=== PATIENT | male | born 1945 | race Caucasian/White ===

== ENCOUNTER 2020-06-16 15:25 | Inpatient (IN) ==
[2020-06-16] MEDS ORDERED: Amiodarone Premix 360 MG/200 ML BAG IVC ONE ×2 (15:43→15:52)
[2020-06-16] MEDS ORDERED: Amiodarone Premix 150 MG/100 ML BAG IVPB ONE ×2 (15:43→15:50)
[2020-06-16 16:11] LABS: Mean Corpuscular Hemoglobin 28.6 pg (28.0-33.3)
[2020-06-16 16:12] LABS: Basophils % 0.6 %; Eosinophils # 0.1 K/mcL (0.0-0.6); Eosinophils % 2.7 %; Hematocrit 44.5 % (37.5-50.1); Immature Granulocytes % 1.7 % (0-4); Mean Corpuscular HGB Conc 31.5 g/dL (31.6-35.5); Mean Corpuscular Volume 90.8 fL (83.0-100.0); Mean Platelet Volume 11.8 fL (9.4-12.4); Monocytes # 0.8 K/mcL (0.0-1.3); Monocytes % 15.7 %; Neutrophils # 1.9 K/mcL (1.6-8.9); Red Cell Distribution Width 15.4 % (11.5-14.5); Segmented Neutrophils % 36.3 %; White Blood Count 5.2 K/mcL (4.3-11.1)
[2020-06-16 16:20] LABS: Prothrombin Time 11.9 Seconds (9.4-12.1)
[2020-06-16 16:22] LABS: Activated Partial Thrombo Time 28.9 Seconds (26.0-36.0)
[2020-06-16 16:31] LABS: Alanine Aminotransferase 31 Units/L (7-52); Albumin 4.7 g/dL (3.5-5.7); Albumin/Globulin Ratio 1.5 (1.1-2.2); Alkaline Phosphatase 54 Units/L (34-104); Aspartate Amino Transferase 27 Units/L (13-39); BUN/Creatinine Ratio 12 (6-26); Bilirubin,Direct 0.2 mg/dL (0.0-0.2); Bilirubin,Indirect 0.5 mg/dL (0.0-1.0); Bilirubin,Total 0.7 mg/dL (0.3-1.0); Blood Urea Nitrogen 13 mg/dL (8-23); Calcium 9.6 mg/dL (8.6-10.3); Carbon Dioxide 28 mEq/L (23-29); Chloride 103 mEq/L (98-107); Globulin 3.2 g/dL (2.4-3.5); Glucose 135 mg/dL (70-105); Osmolality,Calculated 288 (280-300); Potassium 3.2 mEq/L (3.5-5.1); Sodium 138 mEq/L (136-145); Total Protein 7.9 g/dL (6.4-8.9); Troponin I 0.03 ng/mL (< 0.04); eGFR For African Americans > 60 (> 60); eGFR For Non-African Americans > 60 (> 60)
[2020-06-16 17:14] LABS: Lymphocytes # 2.2 K/mcL (0.6-4.6); Platelet Count 82 K/mcL (140-400)
[2020-06-16 17:15] LABS: Platelet Estimate Decreased (Normal)
[2020-06-16 18:24] LABS: Magnesium 1.9 mg/dL (1.6-2.6)
[2020-06-16 18:28] LABS: Troponin I 0.06 ng/mL (< 0.04)
[2020-06-16] MEDS ORDERED: *HR* Heparin 5,000 UNIT/ML VIAL IVP PRN ×2 (18:34)
[2020-06-16] MEDS ORDERED: *HR* Heparin 5,000 UNIT/ML VIAL IVP ONE (18:34)
[2020-06-16] MEDS ORDERED: Heparin 25,000UNIT/250ML 1/2NS 25,000 UNIT/250 ML IV.SOLN IVC SCH (18:45)
[2020-06-16 19:18] LABS: Hemoglobin 12.8 g/dL (12.9-16.9); Mean Corpuscular Hemoglobin 28.6 pg (28.0-33.3)
[2020-06-16 19:20] LABS: Hematocrit 40.4 % (37.5-50.1); Immature Platelets 12.1 % (1.1-6.1); Mean Corpuscular HGB Conc 31.7 g/dL (31.6-35.5); Mean Corpuscular Volume 90.4 fL (83.0-100.0); Mean Platelet Volume 12.1 fL (9.4-12.4); Red Blood Count 4.47 M/mcL (4.19-5.50); Red Cell Distribution Width 15.2 % (11.5-14.5); White Blood Count 5.8 K/mcL (4.3-11.1)
[2020-06-16 19:26] LABS: Heparin anti-factor XA UFH < 0.04 IU/mL (0.30-0.70)
[2020-06-16 19:27] LABS: Prothrombin Time 11.6 Seconds (9.4-12.1)
[2020-06-16] MEDS ORDERED: Naloxone 0.4 MG/ML INJ IVP PRN (20:47)
[2020-06-16] MEDS ORDERED: Ondansetron ODT 4 MG TAB.RAPDIS SL PRN (20:47)
[2020-06-16] MEDS ORDERED: Acetaminophen 325 MG TABLET PO PRN (20:47)
[2020-06-16] MEDS ORDERED: Perflutren Lipid Microsphere 1.3 ML in 0.9 % Sodium Chloride 8.7 ML IVP PRN (20:50)
[2020-06-16] MEDS: Amiodarone Premix 360 MG/200 ML BAG IVC SCH (21:16)
[2020-06-16] MEDS: Melatonin 3 MG TABLET PO SCH (22:23)
[2020-06-17 04:16] LABS: Basophils % 0.4 %; Hemoglobin 13.4 g/dL (12.9-16.9); Red Cell Distribution Width 15.2 % (11.5-14.5)
[2020-06-17 04:18] LABS: Eosinophils # 0.1 K/mcL (0.0-0.6); Eosinophils % 2.3 %; Hematocrit 42.5 % (37.5-50.1); Immature Granulocytes % 1.2 % (0-4); Immature Platelets 13.5 % (1.1-6.1); Lymphocytes # 1.6 K/mcL (0.6-4.6); Lymphocytes % 31.1 %; Mean Corpuscular HGB Conc 31.5 g/dL (31.6-35.5); Mean Corpuscular Hemoglobin 28.5 pg (28.0-33.3); Mean Corpuscular Volume 90.4 fL (83.0-100.0); Mean Platelet Volume 12.5 fL (9.4-12.4); Monocytes # 0.9 K/mcL (0.0-1.3); Monocytes % 16.6 %; Neutrophils # 2.5 K/mcL (1.6-8.9); Segmented Neutrophils % 48.4 %; White Blood Count 5.2 K/mcL (4.3-11.1)
[2020-06-17 04:20] LABS: Platelet Count 68 K/mcL (140-400)
[2020-06-17 04:25] LABS: Prothrombin Time 11.7 Seconds (9.4-12.1)
[2020-06-17 04:54] LABS: Alanine Aminotransferase 25 Units/L (7-52); Albumin/Globulin Ratio 1.4 (1.1-2.2); Alkaline Phosphatase 52 Units/L (34-104); Aspartate Amino Transferase 24 Units/L (13-39); BUN/Creatinine Ratio 13 (6-26); Bilirubin,Total 0.6 mg/dL (0.3-1.0); Blood Urea Nitrogen 12 mg/dL (8-23); Calcium 9.1 mg/dL (8.6-10.3); Carbon Dioxide 24 mEq/L (23-29); Chloride 107 mEq/L (98-107); Cholesterol 128 mg/dL (< 200); Globulin 2.8 g/dL (2.4-3.5); Glucose 102 mg/dL (70-105); HDL Cholesterol 32 mg/dL (40-59); LDL Cholesterol,Calculated 73 mg/dL (< 100); Osmolality,Calculated 286 (280-300); Phosphorous 3.7 mg/dL (2.7-4.5); Potassium 4.1 mEq/L (3.5-5.1); Sodium 138 mEq/L (136-145); Thyroid Stimulating Hormone 2.347 mcIU/mL (0.340-5.600); Total Protein 6.8 g/dL (6.4-8.9); Triglycerides 114 mg/dL (< 150); eGFR For African Americans > 60 (> 60); eGFR For Non-African Americans > 60 (> 60)
[2020-06-17] MEDS: Metoprolol XL (24 HR) Succ 25 MG TAB.ER.24H PO SCH (08:54)
[2020-06-17] MEDS: Aspirin Enteric Coated 81 MG Tablet PO SCH (12:53)
[2020-06-17] MEDS: Amiodarone Premix 360 MG/200 ML BAG IVC SCH (13:47)
[2020-06-17] MEDS ORDERED: Fluticasone Propionate Nasal 50 MCG/SPRAY BOTTLE NS PRN (14:18)
[2020-06-17] MEDS ORDERED: *HR* OxyCODONE ER (12 HR) 10 MG TABLET PO PRN (14:18)
[2020-06-17] MEDS ORDERED: *HR* LORazepam 2 MG/ML VIAL IVP PRN ×3 (18:15)
[2020-06-17] MEDS: Melatonin 3 MG TABLET PO SCH (20:32)
[2020-06-17] MEDS: Folic Acid 1 MG TABLET PO SCH (20:33)
[2020-06-17] MEDS: Thiamine (B-1) 100 MG TABLET PO SCH (20:33)
[2020-06-18] MEDS: Amiodarone Premix 360 MG/200 ML BAG IVC SCH ×2 (02:09→12:19)
[2020-06-18 07:24] LABS: Basophils % 0.4 %; Eosinophils # 0.1 K/mcL (0.0-0.6); Eosinophils % 2.1 %; Hematocrit 41.7 % (37.5-50.1); Lymphocytes # 1.3 K/mcL (0.6-4.6); Lymphocytes % 25.4 %; Mean Corpuscular HGB Conc 31.2 g/dL (31.6-35.5); Mean Corpuscular Hemoglobin 28.3 pg (28.0-33.3); Mean Corpuscular Volume 90.7 fL (83.0-100.0); Mean Platelet Volume 12.2 fL (9.4-12.4); Monocytes # 1.1 K/mcL (0.0-1.3); Monocytes % 21.7 %; Red Cell Distribution Width 15.3 % (11.5-14.5); Segmented Neutrophils % 49.4 %; White Blood Count 5.2 K/mcL (4.3-11.1)
[2020-06-18 07:29] LABS: Neutrophils # 2.6 K/mcL (1.6-8.9); Platelet Count 76 K/mcL (140-400)
[2020-06-18 07:43] LABS: BUN/Creatinine Ratio 15 (6-26); Blood Urea Nitrogen 14 mg/dL (8-23); Calcium 9.3 mg/dL (8.6-10.3); Carbon Dioxide 27 mEq/L (23-29); Chloride 106 mEq/L (98-107); Glucose 99 mg/dL (70-105); Osmolality,Calculated 287 (280-300); Potassium 3.8 mEq/L (3.5-5.1); Sodium 138 mEq/L (136-145); eGFR For African Americans > 60 (> 60); eGFR For Non-African Americans > 60 (> 60)
[2020-06-18] MEDS: Folic Acid 1 MG TABLET PO SCH (08:01)
[2020-06-18] MEDS: Vitamin B Complex/Vit C/Vit E 1 EACH TABLET PO SCH (08:02)
[2020-06-18] MEDS: Thiamine (B-1) 100 MG TABLET PO SCH (08:02)
[2020-06-18] MEDS: Metoprolol XL (24 HR) Succ 25 MG TAB.ER.24H PO SCH (08:02)
[2020-06-18] MEDS: Aspirin Enteric Coated 81 MG Tablet PO SCH (08:02)
[2020-06-18] MEDS ORDERED: NON-FORMULARY MEDICATION 1 EACH EACH (Atorvastatin Calcium [Lipitor] 80 MG Tablet) PO SCH (09:00)
[2020-06-18] MEDS ORDERED: Aspirin Enteric Coated 81 MG Tablet PO SCH (09:00)
[2020-06-18 09:19] LABS: Large Platelets Present (Not Present); Smudge Cells Present (Not Present)
[2020-06-18] MEDS ORDERED: Potassium Chloride 20 MEQ, Lidocaine 1% 2 ML in 0.9 % Sodium Chloride 250 ML IVPB ONE (10:41)
[2020-06-18 13:20] LABS: Lactate Dehydrogenase 185 Units/L (140-271)
[2020-06-18 13:27] LABS: Immature Reticulocyte % 24.3 % (11.0-38.0); Retculocyte # 0.12 M/mcL (0.05-0.10); Reticulocyte % 2.2 % (1.6-2.8)
[2020-06-18] MEDS ORDERED: Metoprolol XL (24 HR) Succ 25 MG TAB.ER.24H PO ONE (13:30)
[2020-06-18 14:07] LABS: Hepatitis B Surface Antigen Nonreactive (Nonreactive)
[2020-06-18 14:36] LABS: Hepatitis C Virus Antibody Nonreactive (Nonreactive)
[2020-06-18 14:37] LABS: Hepatitis B Core IgM Nonreactive (Nonreactive)
[2020-06-18 14:38] LABS: Hepatitis A Antibody IgM Nonreactive (Nonreactive)
[2020-06-18] MEDS: Melatonin 3 MG TABLET PO SCH (20:06)
[2020-06-19] MEDS: Amiodarone Premix 360 MG/200 ML BAG IVC SCH (00:06)
[2020-06-19] MEDS: Vitamin B Complex/Vit C/Vit E 1 EACH TABLET PO SCH (07:48)
[2020-06-19] MEDS: Thiamine (B-1) 100 MG TABLET PO SCH (07:48)
[2020-06-19] MEDS: Folic Acid 1 MG TABLET PO SCH (07:49)
[2020-06-19] MEDS: Aspirin Enteric Coated 81 MG Tablet PO SCH (07:49)
[2020-06-19] MEDS ORDERED: Metoprolol XL (24 HR) Succ 25 MG TAB.ER.24H PO SCH (09:00)
[2020-06-19 09:25] LABS: Eosinophils # 0.1 K/mcL (0.0-0.6); Hematocrit 43.1 % (37.5-50.1); Hemoglobin 13.7 g/dL (12.9-16.9); Immature Platelets 13.8 % (1.1-6.1); Mean Corpuscular HGB Conc 31.8 g/dL (31.6-35.5); Mean Corpuscular Hemoglobin 28.5 pg (28.0-33.3); Mean Corpuscular Volume 89.8 fL (83.0-100.0); Mean Platelet Volume 11.5 fL (9.4-12.4); Neutrophils # 2.8 K/mcL (1.6-8.9); Platelet Count 83 K/mcL (140-400); Red Cell Distribution Width 15.5 % (11.5-14.5); White Blood Count 5.8 K/mcL (4.3-11.1)
[2020-06-19 09:44] LABS: BUN/Creatinine Ratio 17 (6-26); Blood Urea Nitrogen 14 mg/dL (8-23); Calcium 9.7 mg/dL (8.6-10.3); Carbon Dioxide 26 mEq/L (23-29); Chloride 105 mEq/L (98-107); Glucose 97 mg/dL (70-105); Osmolality,Calculated 286 (280-300); Potassium 4.2 mEq/L (3.5-5.1); Sodium 138 mEq/L (136-145); eGFR For African Americans > 60 (> 60); eGFR For Non-African Americans > 60 (> 60)
[2020-06-19] MEDS ORDERED: *HR* Midazolam HCl 2 MG/2 ML VIAL ONE (11:36)
[2020-06-19] MEDS ORDERED: *HR* FentaNYL (PF) 100 MCG/2 ML VIAL ONE (11:36)
[2020-06-19] MEDS ORDERED: ISOVUE-370 200 ML INFUS..BTL ONE (12:43)
[2020-06-19] MEDS ORDERED: Amiodarone Premix 360 MG/200 ML BAG IVC ONE (12:46)
[2020-06-19] MEDS ORDERED: Heparin 1,000 UNITS/500 mL 500 ML ONE ×2 (12:46→13:52)
[2020-06-19] MEDS ORDERED: *HR* Ticagrelor 90 MG TABLET ONE (12:52)
[2020-06-19 12:55] LABS: Basophils # 0.2 K/mcL (0.0-0.2); Lymphocytes # 1.7 K/mcL (0.6-4.6); Monocytes # 0.9 K/mcL (0.0-1.3); Platelet Estimate Decreased (Normal)
[2020-06-19 12:58] LABS: Reactive Lymphocytes Present (Not Present)
[2020-06-19] MEDS ORDERED: *HR* Heparin 10,000 UNIT/10 ML VIAL ONE (13:07)
[2020-06-19] MEDS ORDERED: Nitroglycerin Spray 4.9 GM BOTTLE ONE (13:49)
[2020-06-19] MEDS ORDERED: Furosemide 40 MG/4 ML VIAL IVP ONE (15:13)
[2020-06-19] MEDS: Melatonin 3 MG TABLET PO SCH (21:46)
[2020-06-19] MEDS: *HR* Ticagrelor 90 MG TABLET PO SCH (21:46)
[2020-06-20 01:45] LABS: Basophils % 0.4 %
[2020-06-20 01:46] LABS: Eosinophils # 0.1 K/mcL (0.0-0.6); Hemoglobin 13.9 g/dL (12.9-16.9); Immature Platelets 14.7 % (1.1-6.1); Lymphocytes # 1.3 K/mcL (0.6-4.6); Lymphocytes % 15.8 %; Mean Corpuscular HGB Conc 33.1 g/dL (31.6-35.5); Mean Corpuscular Hemoglobin 28.8 pg (28.0-33.3); Mean Corpuscular Volume 87.1 fL (83.0-100.0); Mean Platelet Volume 12.3 fL (9.4-12.4); Monocytes # 1.7 K/mcL (0.0-1.3); Monocytes % 21.7 %; Neutrophils # 4.6 K/mcL (1.6-8.9); Red Blood Count 4.82 M/mcL (4.19-5.50); Segmented Neutrophils % 58.1 %; White Blood Count 7.9 K/mcL (4.3-11.1)
[2020-06-20 01:50] LABS: Platelet Count 91 K/mcL (140-400)
[2020-06-20 02:05] LABS: BUN/Creatinine Ratio 19 (6-26); Blood Urea Nitrogen 16 mg/dL (8-23); Calcium 9.7 mg/dL (8.6-10.3); Carbon Dioxide 23 mEq/L (23-29); Chloride 102 mEq/L (98-107); Glucose 105 mg/dL (70-105); Osmolality,Calculated 284 (280-300); Potassium 3.6 mEq/L (3.5-5.1); Sodium 136 mEq/L (136-145); eGFR For African Americans > 60 (> 60); eGFR For Non-African Americans > 60 (> 60)
[2020-06-20] MEDS: Aspirin Enteric Coated 81 MG Tablet PO SCH (08:02)
[2020-06-20] MEDS: *HR* Ticagrelor 90 MG TABLET PO SCH ×2 (08:03→21:12)
[2020-06-20] MEDS: Thiamine (B-1) 100 MG TABLET PO SCH (08:03)
[2020-06-20] MEDS: Folic Acid 1 MG TABLET PO SCH (08:03)
[2020-06-20] MEDS: Vitamin B Complex/Vit C/Vit E 1 EACH TABLET PO SCH (08:03)
[2020-06-20] MEDS ORDERED: Benzonatate 100 MG CAPSULE PO PRN (08:05)
[2020-06-20] MEDS ORDERED: Furosemide 40 MG/4 ML VIAL IVP ONE (09:00)
[2020-06-20] MEDS: Spironolactone 25 MG TABLET PO SCH (10:43)
[2020-06-20] MEDS: Sacubitril/Valsartan 24/26 MG 1 TABLET PO SCH ×2 (10:43→21:12)
[2020-06-20] MEDS: Metoprolol XL (24 HR) Succ 50 MG TAB.ER.24H PO SCH ×2 (17:07→21:16)
[2020-06-20] MEDS ORDERED: Melatonin 3 MG TABLET PO PRN (17:49)
[2020-06-20] MEDS ORDERED: Nitroglycerin 0.4 MG TAB.SUBL SL PRN (17:50)
[2020-06-20] MEDS: Melatonin 3 MG TABLET PO SCH (21:14)
[2020-06-21 05:54] LABS: Hematocrit 45.1 % (37.5-50.1); Hemoglobin 14.5 g/dL (12.9-16.9); Mean Corpuscular HGB Conc 32.2 g/dL (31.6-35.5); Mean Corpuscular Hemoglobin 28.5 pg (28.0-33.3); Mean Corpuscular Volume 88.8 fL (83.0-100.0); Mean Platelet Volume 12.1 fL (9.4-12.4); Red Blood Count 5.08 M/mcL (4.19-5.50); Red Cell Distribution Width 15.3 % (11.5-14.5); White Blood Count 7.8 K/mcL (4.3-11.1)
[2020-06-21 06:18] LABS: BUN/Creatinine Ratio 29 (6-26); Blood Urea Nitrogen 25 mg/dL (8-23); Calcium 9.8 mg/dL (8.6-10.3); Carbon Dioxide 25 mEq/L (23-29); Chloride 104 mEq/L (98-107); Glucose 115 mg/dL (70-105); Magnesium 2.1 mg/dL (1.6-2.6); Osmolality,Calculated 291 (280-300); Phosphorous 3.7 mg/dL (2.7-4.5); Potassium 3.8 mEq/L (3.5-5.1); Sodium 138 mEq/L (136-145); eGFR For African Americans > 60 (> 60); eGFR For Non-African Americans > 60 (> 60)
[2020-06-21] MEDS: Sacubitril/Valsartan 24/26 MG 1 TABLET PO SCH (07:38)
[2020-06-21] MEDS: Thiamine (B-1) 100 MG TABLET PO SCH (07:38)
[2020-06-21] MEDS: Aspirin Enteric Coated 81 MG Tablet PO SCH (07:38)
[2020-06-21] MEDS: Spironolactone 25 MG TABLET PO SCH (07:38)
[2020-06-21] MEDS: Vitamin B Complex/Vit C/Vit E 1 EACH TABLET PO SCH (07:38)
[2020-06-21] MEDS: Metoprolol XL (24 HR) Succ 50 MG TAB.ER.24H PO SCH (07:38)
[2020-06-21] MEDS: Folic Acid 1 MG TABLET PO SCH (07:38)
[2020-06-21] MEDS: *HR* Ticagrelor 90 MG TABLET PO SCH (07:38)
[2020-06-21 10:20] VITALS: BP 127/75
== END 2020-06-21 13:25 | disposition home or self-care (01) | DRG 246 ==
LOC: EMEROOARM 15:25 → 2NNU 15:25 → SUATTDRO 19:35 → 2NNU 20:49 → SUATTDRO 06-17 18:11 → CDU 06-21 10:12
PROVIDERS: ADMIT Family Medicine; ATTEND Internal Medicine

== ENCOUNTER 2020-10-17 10:40 | Observation (INO) ==
[2020-10-17 11:46] LABS: Basophils % 0.4 %; Hematocrit 40.3 % (37.5-50.1)
[2020-10-17 11:48] LABS: Eosinophils % 1.1 %; Hemoglobin 12.6 g/dL (12.9-16.9); Immature Granulocytes % 2.9 % (0-4); Immature Platelets 11.1 % (1.1-6.1); Lymphocytes # 0.9 K/mcL (0.6-4.6); Mean Corpuscular HGB Conc 31.3 g/dL (31.6-35.5); Mean Corpuscular Hemoglobin 28.5 pg (28.0-33.3); Mean Corpuscular Volume 91.2 fL (83.0-100.0); Monocytes # 0.4 K/mcL (0.0-1.3); Monocytes % 13.7 %; Neutrophils # 1.4 K/mcL (1.6-8.9); Red Blood Count 4.42 M/mcL (4.19-5.50); Red Cell Distribution Width 15.5 % (11.5-14.5); Segmented Neutrophils % 50.9 %; White Blood Count 2.8 K/mcL (4.3-11.1)
[2020-10-17 11:49] LABS: Platelet Count 69 K/mcL (140-400)
[2020-10-17 11:59] LABS: INR 1.1; Prothrombin Time 12.2 Seconds (9.4-12.1)
[2020-10-17 12:01] LABS: Activated Partial Thrombo Time 29.6 Seconds (26.0-36.0)
[2020-10-17 12:07] LABS: BUN/Creatinine Ratio 13 (6-26); Blood Urea Nitrogen 11 mg/dL (8-23); Calcium 9.3 mg/dL (8.6-10.3); Carbon Dioxide 26 mEq/L (23-29); Chloride 107 mEq/L (98-107); Glucose 144 mg/dL (70-105); Osmolality,Calculated 290 (280-300); Potassium 3.8 mEq/L (3.5-5.1); Sodium 139 mEq/L (136-145); Troponin I 0.03 ng/mL (< 0.04); eGFR For African Americans > 60 (> 60); eGFR For Non-African Americans > 60 (> 60)
[2020-10-17] MEDS ORDERED: 0.9 % Sodium Chloride 500 ML IVC STA (13:18)
[2020-10-17] MEDS ORDERED: Naloxone 0.4 MG/ML INJ IVP PRN (15:35)
[2020-10-17] MEDS ORDERED: Ondansetron 4 MG/2 ML VIAL IVP PRN (15:35)
[2020-10-17] MEDS ORDERED: Melatonin 3 MG TABLET PO PRN (15:35)
[2020-10-17] MEDS ORDERED: Ipratropium/Albuterol Neb 3 ML IH PRN (18:18)
[2020-10-17] MEDS: predniSONE 20 MG TABLET PO SCH (21:00)
[2020-10-18 06:11] LABS: INR 1.1; Prothrombin Time 12.5 Seconds (9.4-12.1)
[2020-10-18 07:44] LABS: BUN/Creatinine Ratio 15 (6-26); Blood Urea Nitrogen 13 mg/dL (8-23); Calcium 9.2 mg/dL (8.6-10.3); Carbon Dioxide 25 mEq/L (23-29); Chloride 107 mEq/L (98-107); Chol/HDL Ratio 3.9 (0-4.9); Cholesterol 134 mg/dL (< 200); Glucose 145 mg/dL (70-105); HDL Cholesterol 34 mg/dL (40-59); LDL Cholesterol,Calculated 88 mg/dL (< 100); Magnesium 1.9 mg/dL (1.6-2.6); Osmolality,Calculated 297 (280-300); Potassium 4.4 mEq/L (3.5-5.1); Sodium 142 mEq/L (136-145); Triglycerides 61 mg/dL (< 150); eGFR For African Americans > 60 (> 60); eGFR For Non-African Americans > 60 (> 60)
[2020-10-18] MEDS ORDERED: Metoprolol XL (24 HR) Succ 50 MG TAB.ER.24H PO SCH (09:00)
[2020-10-18] MEDS ORDERED: Sacubitril/Valsartan 24/26 MG 1 TABLET PO SCH (09:00)
[2020-10-18] MEDS: predniSONE 20 MG TABLET PO SCH (09:20)
[2020-10-18] MEDS: Sacubitril/Valsartan 24/26 MG 1 TABLET PO SCH ×2 (09:20→21:19)
[2020-10-18] MEDS: Spironolactone 12.5 MG TABLET PO SCH (09:20)
[2020-10-18] MEDS: Aspirin Enteric Coated 81 MG Tablet PO SCH (09:20)
[2020-10-18] MEDS ORDERED: Perflutren Lipid Microsphere 1.3 ML in 0.9 % Sodium Chloride 8.7 ML IVP PRN (11:39)
[2020-10-18] MEDS ORDERED: *HR* OxyCODONE ER (12 HR) 10 MG TABLET PO PRN (12:26)
[2020-10-18] MEDS: *HR* Heparin 5,000 UNIT/ML VIAL SQ SCH (16:44)
[2020-10-18 17:43] LABS: Hematocrit 41.4 % (37.5-50.1); Hemoglobin 13.1 g/dL (12.9-16.9); Immature Platelets 11.4 % (1.1-6.1); Mean Corpuscular HGB Conc 31.6 g/dL (31.6-35.5); Mean Corpuscular Hemoglobin 28.9 pg (28.0-33.3); Mean Corpuscular Volume 91.4 fL (83.0-100.0); Mean Platelet Volume 11.6 fL (9.4-12.4); Platelet Count 84 K/mcL (140-400); Red Blood Count 4.53 M/mcL (4.19-5.50); Red Cell Distribution Width 15.7 % (11.5-14.5); White Blood Count 7.4 K/mcL (4.3-11.1)
[2020-10-18 17:58] LABS: Lymphocytes # 0.6 K/mcL (0.6-4.6); Monocytes # 0.4 K/mcL (0.0-1.3); Neutrophils # 6.4 K/mcL (1.6-8.9); Platelet Estimate Decreased (Normal)
[2020-10-18] MEDS: Metoprolol XL (24 HR) Succ 50 MG TAB.ER.24H PO SCH (21:19)
[2020-10-19] MEDS: *HR* Heparin 5,000 UNIT/ML VIAL SQ SCH (05:10)
[2020-10-19 08:23] LABS: Red Cell Distribution Width 15.7 % (11.5-14.5)
[2020-10-19 08:25] LABS: Hematocrit 37.9 % (37.5-50.1); Hemoglobin 11.7 g/dL (12.9-16.9); Immature Platelets 14.9 % (1.1-6.1); Mean Corpuscular HGB Conc 30.9 g/dL (31.6-35.5); Mean Corpuscular Hemoglobin 28.7 pg (28.0-33.3); Mean Corpuscular Volume 93.1 fL (83.0-100.0); Mean Platelet Volume 12.6 fL (9.4-12.4); Red Blood Count 4.07 M/mcL (4.19-5.50); White Blood Count 5.6 K/mcL (4.3-11.1)
[2020-10-19] MEDS: predniSONE 20 MG TABLET PO SCH (08:52)
[2020-10-19] MEDS: Spironolactone 12.5 MG TABLET PO SCH (08:52)
[2020-10-19] MEDS: Aspirin Enteric Coated 81 MG Tablet PO SCH (08:52)
[2020-10-19] MEDS: Sacubitril/Valsartan 24/26 MG 1 TABLET PO SCH (08:52)
[2020-10-19] MEDS: Metoprolol XL (24 HR) Succ 50 MG TAB.ER.24H PO SCH (08:53)
[2020-10-19 08:54] LABS: BUN/Creatinine Ratio 24 (6-26); Blood Urea Nitrogen 20 mg/dL (8-23); Calcium 8.9 mg/dL (8.6-10.3); Carbon Dioxide 27 mEq/L (23-29); Chloride 107 mEq/L (98-107); Glucose 90 mg/dL (70-105); Magnesium 2.2 mg/dL (1.6-2.6); Osmolality,Calculated 292 (280-300); Potassium 3.6 mEq/L (3.5-5.1); Sodium 140 mEq/L (136-145); eGFR For African Americans > 60 (> 60); eGFR For Non-African Americans > 60 (> 60)
[2020-10-19 10:11] VITALS: BP 117/62; PULSE 71; TEMP 97.8; O2SAT 96
== END 2020-10-19 12:01 | disposition home or self-care (01) ==
LOC: EMEROOARM 10:40 → 3BNU 10:40 → SUATTDRO 15:10 → 3BNU 16:45
PROVIDERS: ADMIT Pharmacist; ATTEND Nurse Practitioner